=== PATIENT | male | born 1970 | race Caucasian/White ===

== ENCOUNTER 2022-12-13 13:01 | Inpatient (IN) | payer BC, OTHER ==
[~2022-12-13] VITALS: Ht 170.2 cm; Wt 93.0 kg
[~2022-12-13 13:01] MED LIST: CYCL-1 PO; IBUP-1986 PO
[2022-12-13 13:44] LABS: BASOPHILS # (AUTO) 0.1 X10'3 (0-0.2); BASOPHILS % (AUTO) 0.7 % (0-1); EOSINOPHILS # (AUTO) 0.2 X10'3 (0-0.9); EOSINOPHILS % (AUTO) 2.6 % (0-6); HEMATOCRIT 47.2 % (42.0-52.0); HEMOGLOBIN 15.9 g/dl (14.0-17.9); LYMPHOCYTES # (AUTO) 2.3 X10'3 (1.1-4.8); LYMPHOCYTES % (AUTO) 26.3 % (21-51); MEAN CORPUSCULAR HEMOGLOBIN 30.4 PG (27.0-31.0); MEAN CORPUSCULAR HGB CONC 33.8 g/dL (33.0-36.5); MONOCYTES # (AUTO) 0.8 X10'3 (0-0.9); MONOCYTES % (AUTO) 9.4 % (2-12); NEUTROPHILS # (AUTO) 5.2 X10'3 (1.8-7.7); PLATELET COUNT 346 X10'3 (140-440); RED BLOOD COUNT 5.24 X10'6 (4.70-6.10); RED CELL DISTRIBUTION WIDTH 13.4 % (11.5-14.5); WHITE BLOOD COUNT 8.6 X10'3 (4.5-11.0)
[2022-12-13 13:59] LABS: ALANINE AMINOTRANSFERASE 32 U/L (12-78); ALBUMIN 3.7 G/DL (3.4-5.0); ALBUMIN/GLOBULIN RATIO 1.1 (1.1-1.5); ALKALINE PHOSPHATASE 62 IU/L (46-116); ANION GAP 7 (8-16); ASPARTATE AMINO TRANSFERASE 20 U/L (10-37); BILIRUBIN,TOTAL 0.6 MG/DL (0.1-1.0); BLOOD UREA NITROGEN 10 MG/DL (7-18); BUN/CREATININE RATIO 11.4 (10.0-20.0); CALCIUM 8.7 MG/DL (8.5-10.1); CHLORIDE 105 MMOL/L (99-107); CREATININE 0.88 MG/DL (0.60-1.10); GLUCOSE 87 MG/DL (70-104); POTASSIUM 4.1 MMOL/L (3.5-5.1); SODIUM 137 MMOL/L (135-145); TOTAL PROTEIN 7.2 G/DL (6.4-8.2); eGFR > 90 ML/MIN
[2022-12-13] MEDS ORDERED: magnesium 2GM in 50ml NS 50 ML IV PRN (15:20)
[2022-12-13] MEDS ORDERED: HYDROcodone/acetaminophen 5mg/325mg tablet PO PRN (15:20)
[2022-12-13] MEDS ORDERED: HYDROcodone/acetaminophen 10/325mg tab PO PRN (15:20)
[2022-12-13] MEDS ORDERED: potassium Cl 40MEQ/1/2NS 520ml 520 ML IV PRN (15:20)
[2022-12-13] MEDS ORDERED: magnesium 4gm in 100ml NS 100 ML IV PRN (15:20)
[2022-12-13] MEDS ORDERED: magnesium Cl slow-release 64mg tablet PO PRN (15:20)
[2022-12-13] MEDS ORDERED: potassium Cl 20 mEq SR tablet PO PRN ×2 (15:20)
[2022-12-13] MEDS ORDERED: morphine 2 MG/ML inj. syringe IV PRN ×2 (15:20)
[2022-12-13] MEDS ORDERED: ondansetron/PF 4mg/2ml inj IV PRN (15:20)
[2022-12-13] MEDS ORDERED: aminophylline 250mg/10ml inj. IV PRN (15:35)
[2022-12-13] MEDS ORDERED: regadenoson 0.4mg/5ml syringe IV PRN (15:35)
[2022-12-13] MEDS ORDERED: metoprolol tartrate 1mg/ml inj IV PRN (15:35)
[2022-12-13] MEDS ORDERED: nitroGLYCERIN 0.4mg SUBLingual tab SL PRN (15:35)
[2022-12-13] MEDS: normal saline 1000ml 1,000 ML IV SCH (16:14)
[2022-12-13 16:16] LABS: D-DIMER < 0.19 MG/L FEU (0-0.50)
[2022-12-13] MEDS ORDERED: NO HOME MEDS (18:51)
--- NOTE | 2022-12-13 18:53 | NUR ---
pt eating dinner.
--- NOTE | 2022-12-13 19:19 | NUR ---
Rec'd report from POLLY Goodman in the ER.
--- NOTE | 2022-12-13 19:29 | NUR ---
Patient arrived from ER in wheelchair and ambulated to bed w/o problem, is complaining of headache 11/28. I will check MAR for Tylenol.
[2022-12-13 19:35] VITALS: BP 134/89; PULSE 86; RESP 14; TEMP 98; O2SAT 97
[2022-12-13] MEDS: acetaminophen 325mg tablet PO PRN (19:35)
[2022-12-13] MEDS: heparin, porcine 5000 units/ml vial SQ SCH (19:36)
[2022-12-13 19:47] VITALS: RESP 14; RESP 16; O2SAT 97
[2022-12-13 22:00] VITALS: BP 123/54; PULSE 67; RESP 21; TEMP 97.8; O2SAT 94
[2022-12-14] VITALS (14 sets, daily range): BP systolic 117–137; BP diastolic 75–91; PULSE 65–91; RESP 12–27; TEMP 97.1–98.1; O2SAT 95–98
[2022-12-14] MEDS: normal saline 1000ml 1,000 ML IV SCH ×3 (01:20→21:20)
--- NOTE | 2022-12-14 06:00 | NUR ---
Patient in room PCU 3015. I have received report from misha cortes and had the opportunity to ask questions and assume patient care.
--- NOTE | 2022-12-14 06:42 | NUR ---
Problems reprioritized. Patient report given, questions answered & plan of care reviewed with AMRIT [place].
[2022-12-14 07:36] LABS: BASOPHILS # (AUTO) 0.1 X10'3 (0-0.2); BASOPHILS % (AUTO) 0.8 % (0-1); EOSINOPHILS # (AUTO) 0.2 X10'3 (0-0.9); EOSINOPHILS % (AUTO) 2.9 % (0-6); HEMATOCRIT 44.1 % (42.0-52.0); HEMOGLOBIN 14.9 g/dl (14.0-17.9); LYMPHOCYTES # (AUTO) 2.1 X10'3 (1.1-4.8); LYMPHOCYTES % (AUTO) 28.1 % (21-51); MEAN CORPUSCULAR HEMOGLOBIN 30.4 PG (27.0-31.0); MEAN CORPUSCULAR HGB CONC 33.8 g/dL (33.0-36.5); MEAN PLATELET VOLUME 7.1 FL (7.4-10.4); MONOCYTES # (AUTO) 0.6 X10'3 (0-0.9); MONOCYTES % (AUTO) 8.3 % (2-12); NEUTROPHILS # (AUTO) 4.6 X10'3 (1.8-7.7); NEUTROPHILS % (AUTO) 59.9 % (42-75); PLATELET COUNT 304 X10'3 (140-440); RED CELL DISTRIBUTION WIDTH 13.5 % (11.5-14.5); WHITE BLOOD COUNT 7.7 X10'3 (4.5-11.0)
[2022-12-14] MEDS: heparin, porcine 5000 units/ml vial SQ SCH ×2 (08:00→21:02)
[2022-12-14 08:03] LABS: ALANINE AMINOTRANSFERASE 27 U/L (12-78); ALBUMIN 3.2 G/DL (3.4-5.0); ALKALINE PHOSPHATASE 54 IU/L (46-116); ANION GAP 11 (8-16); ASPARTATE AMINO TRANSFERASE 20 U/L (10-37); BILIRUBIN,TOTAL 0.6 MG/DL (0.1-1.0); BLOOD UREA NITROGEN 13 MG/DL (7-18); BUN/CREATININE RATIO 13.7 (10.0-20.0); CALCIUM 8.4 MG/DL (8.5-10.1); CHLORIDE 106 MMOL/L (99-107); CREATININE 0.95 MG/DL (0.60-1.10); GLUCOSE 101 MG/DL (70-104); POTASSIUM 4.1 MMOL/L (3.5-5.1); SODIUM 139 MMOL/L (135-145); TOTAL CARBON DIOXIDE 22.2 MMOL/L (24-32); TOTAL PROTEIN 6.4 G/DL (6.4-8.2); eGFR 84 ML/MIN
[2022-12-14] MEDS ORDERED: iohexol 300mg/ml 100ml inj. ONE (15:03)
[2022-12-14] MEDS ORDERED: iohexol 300 MG/1 ML 50ml polymer ONE (15:04)
--- NOTE | 2022-12-14 15:37 | NUR ---
patient alert and able to make needs known to staff. Ns contines at 100ml/hr. No c/o pain or discomfort. Waiting on results from CT scan. All safety measures in place and call light in reach.Will continue to monitor.
--- NOTE | 2022-12-14 18:00 | NUR ---
ordered to MILY Avisena.
--- NOTE | 2022-12-14 18:15 | NUR ---
Patient in room PCU 3015. I have received report from Nancie MATIAS and had the opportunity to ask questions and assume patient care.
--- NOTE | 2022-12-14 18:20 | NUR ---
Problems reprioritized. Patient report given, questions answered & plan of care reviewed with
[2022-12-15 02:00] VITALS: BP 118/73; PULSE 76; RESP 14; TEMP 98.4; O2SAT 99
[2022-12-15] MEDS: acetaminophen 325mg tablet PO PRN (05:42)
--- NOTE | 2022-12-15 07:00 | NUR ---
Patient in room PCU 3015. I have received report from Julia cortes and had the opportunity to ask questions and assume patient care.
[2022-12-15 07:15] LABS: BASOPHILS # (AUTO) 0.1 X10'3 (0-0.2); BASOPHILS % (AUTO) 0.8 % (0-1); EOSINOPHILS # (AUTO) 0.3 X10'3 (0-0.9); EOSINOPHILS % (AUTO) 3.5 % (0-6); HEMATOCRIT 44.3 % (42.0-52.0); HEMOGLOBIN 15.2 g/dl (14.0-17.9); LYMPHOCYTES # (AUTO) 2.3 X10'3 (1.1-4.8); LYMPHOCYTES % (AUTO) 27.9 % (21-51); MEAN CORPUSCULAR HEMOGLOBIN 30.8 PG (27.0-31.0); MEAN CORPUSCULAR HGB CONC 34.4 g/dL (33.0-36.5); MEAN CORPUSCULAR VOLUME 89.6 FL (78-98); MEAN PLATELET VOLUME 7.1 FL (7.4-10.4); MONOCYTES # (AUTO) 0.6 X10'3 (0-0.9); MONOCYTES % (AUTO) 7.8 % (2-12); NEUTROPHILS # (AUTO) 4.8 X10'3 (1.8-7.7); PLATELET COUNT 299 X10'3 (140-440); RED BLOOD COUNT 4.95 X10'6 (4.70-6.10); RED CELL DISTRIBUTION WIDTH 13.3 % (11.5-14.5); WHITE BLOOD COUNT 8.1 X10'3 (4.5-11.0)
--- NOTE | 2022-12-15 07:17 | NUR ---
Problems reprioritized. Patient report given, questions answered & plan of care reviewed with Nancie MARCUS.
[2022-12-15] MEDS: normal saline 1000ml 1,000 ML IV SCH (07:20)
[2022-12-15 07:31] LABS: ALANINE AMINOTRANSFERASE 29 U/L (12-78); ALBUMIN 3.3 G/DL (3.4-5.0); ALKALINE PHOSPHATASE 48 IU/L (46-116); ANION GAP 10 (8-16); ASPARTATE AMINO TRANSFERASE 17 U/L (10-37); BILIRUBIN,TOTAL 0.7 MG/DL (0.1-1.0); BLOOD UREA NITROGEN 10 MG/DL (7-18); BUN/CREATININE RATIO 11.8 (10.0-20.0); CALCIUM 8.7 MG/DL (8.5-10.1); CHLORIDE 105 MMOL/L (99-107); CREATININE 0.85 MG/DL (0.60-1.10); GLUCOSE 97 MG/DL (70-104); POTASSIUM 3.9 MMOL/L (3.5-5.1); SODIUM 140 MMOL/L (135-145); TOTAL CARBON DIOXIDE 25.5 MMOL/L (24-32); TOTAL PROTEIN 6.5 G/DL (6.4-8.2); eGFR > 90 ML/MIN
[2022-12-15] MEDS: heparin, porcine 5000 units/ml vial SQ SCH (08:00)
[2022-12-15] MEDS ORDERED: NICO-731 TOP (09:52)
--- NOTE | 2022-12-15 12:00 | NUR ---
Patient discharged home. No medications sent to pharmacy. Patient upset at discharge and stated no one expained to him what was wrong and feels like he had no answers after being here for two days. explained multiple times what the test results showed. All CT and xray results sent home with patient. IV removed from patients hand. Dressing in place. All personal belongings left room with patient.
[2022-12-15] MEDS ORDERED: PANT40TA54 PO (12:42)
== END 2022-12-15 12:15 | disposition home or self-care (01) | DRG 206 ==
LOC: ER 13:01 → ED HOLD 15:34 → PCU 3S 19:26
PROVIDERS: ADMIT Internal Medicine; ATTEND Internal Medicine
PROC: 4A02XM4 Measurement of Cardiac Total Activity, External Approach (ICD-10-PCS; principal; 2022-12-14)
PROC: 3E073KZ Introduction of Other Diagnostic Substance into Coronary Artery, Percutaneous Approach (ICD-10-PCS; 2022-12-14)
PROC: BW201ZZ Computerized Tomography (CT Scan) of Abdomen using Low Osmolar Contrast (ICD-10-PCS; 2022-12-14)
DX: Q79.1 Other congenital malformations of diaphragm (principal); J98.11 Atelectasis; I25.10 Atherosclerotic heart disease of native coronary artery without angina pectoris; F17.200 Nicotine dependence, unspecified, uncomplicated; G89.29 Other chronic pain; M54.9 Dorsalgia, unspecified; R06.03 Acute respiratory distress; Z71.6 Tobacco abuse counseling
CPT/HCPCS: 36415; 71045; 71046; 71260; 74160; 78452; 80053; 83880; 84484; 85025; 85379; 93005; 93017; 93306; 97161; 97530; 99285; A9500; G0378; J1644; J2785; J3490; J7030; J7040; Q9967